=== PATIENT | female | born 1945 | race Caucasian/White ===

== ENCOUNTER 2017-03-20 16:32 | Inpatient (IN) ==
--- NOTE | 2017-03-20 17:00 | Emergency Department Report ---
Medical Clearance HPI - General Chief complaint: Medical Clearance Stated complaint: eval/poss generations Time Seen by Provider: 03/20/17 16:46 Source: patient, family (daughters) Mode of arrival: ambulatory Limitations: no limitations - History of Present Illness HPI Narrative: She presents to Er today for clearance with her daughters. She lives at home in her own apartment. She is a daily drinker and typically drinks beer or vodka. She did fall at home yesterday and was taken to [facility] where she had a head CT that was normal as well as an ETOH level of 210. Her daughter reports that they are wanting admission to [facility] as she has had some hallucinations. This morning she thought that she saw a dog on her couch and also reports seeing other animals at other times that are not there. complaint: medical clearance requested Onset (ago): day(s) Reason for Medical Clearance: intoxication, other (hallucinations) Place: home Traumatic Symptoms: denies traumatic injury Associated Symptoms: other (hallucination) Treatments Prior to Arrival: none Home medications: Home Medications Medication Instructions Recorded Confirmed Duloxetine [Cymbalta] 30 mg PO BID 03/20/17 03/20/17 Folic Acid [Folate] 1 mg PO DAILY 03/20/17 03/20/17 Furosemide [Lasix] 20 mg PO BID 03/20/17 03/20/17 Levothyroxine Sodium 150 mcg PO ACB 03/20/17 03/20/17 Meclizine [Antivert] 25 mg PO TID PRN 03/20/17 03/20/17 Meloxicam [Meloxicam] 7.5 mg PO DAILY 03/20/17 03/20/17 Metoprolol Tartrate [Lopressor] 25 mg PO BIDWM 03/20/17 03/20/17 Ondansetron HCl 4 mg PO Q6H PRN 03/20/17 03/20/17 Oxycodone HCl 5 mg PO HS PRN 03/20/17 03/20/17 Potassium Chloride 10 meq PO BID 03/20/17 03/20/17 Pyridoxine HCl (Vitamin B6) 25 mg PO DAILY 03/20/17 03/20/17 [Vitamin B-6] Thiamine [Vitamin B-1] 100 mg PO DAILY 03/20/17 03/20/17 Tramadol [Ultram] 50 mg PO DAILY PRN 03/20/17 03/20/17 Allergies/Adverse reactions: Allergies Allergy/AdvReac Type Severity Reaction Status Date / Time aspirin Allergy Severe CLOSES Verified 03/20/17 17:12 THROAT iron dextran complex Allergy Severe Unresponsiv Verified 03/20/17 17:12 e Review of Systems Constitutional: Denies: fever, chills, weakness ENT: Denies: ear pain, throat pain, congestion Cardiovascular: Denies: chest pain, palpitations, dyspnea on exertion, edema Respiratory: Denies: cough, dyspnea, wheezes Gastrointestinal: Denies: abdominal pain, nausea, vomiting, diarrhea Integumentary: Denies: rash Neurological: Denies: headache, weakness, numbness, paresthesias PFSH Patient Stated Medical History Other Cardiology Yes: hx of elevated troponin Bronchitis Yes Pneumonia Yes Other GI Yes: IBS Hx Incontinence Yes Depression Yes Clinic Medical History Hallucination (Acute Medical) Psychosis (Acute Medical) Alcohol withdrawal (Acute Medical) Alcohol use disorder (Acute Medical) Depressive disorder (Acute Medical) Major neurocognitive disorder (Acute Medical) - Social History Smoking status: Never smoker Substance use type: does not use Alcohol intake frequency: does not drink Physical Exam - Limitations Limitations: no limitations - General General appearance: alert, in no apparent distress - Normal Exams: Eyes:: Pupils are PERRLA w/ EOMI, No scleral icterus, irritation, or foreign bodies noted ENMT:: No facial trauma, nasal exudates, pharyngeal erythema, or exudates are noted Neck:: Full range of motion, without adenopathy, JVD, bruits or thyromegaly Chest/Respirations:: Clear all danielson, with good airflow, and symmetry bilaterally Cardiovascular:: Regular rate and rhythm, without murmur or gallop, Pulses 2+ all extremities, capillary refill, <2 seconds all extremities Abdomen:: Bowel sounds positive, soft, non-tender, non-distended, no hepatosplenomegaly, masses or bruits noted Lymphatic:: No lymphadenopathy, or lymphedema noted Musculoskeletal:: No tenderness, or deformity noted, good range of motion, all extremities Integumentary:: No rashes, hives Neurological:: Patient is alert, and oriented, cranial nerves, motor/sensory/ cerebellar, exams w/o gross deficits, to observation Psychiatric:: Patient exhibits, appropriate attention, emotion and affect - Skin Skin exam: Present: other (She is noted to have some ecchymosis around the right eye from her fall last night) Course Vital Signs Temperature 98.6 F 03/20/17 16:35 Pulse Rate 16 L 03/20/17 16:35 Respiratory Rate 16 03/20/17 16:35 Blood Pressure 156/83 H 03/20/17 16:35 Pulse Oximetry 97 03/20/17 16:35 Temperature 97.3 F 03/24/17 16:00 Pulse Rate 83 03/24/17 16:00 Respiratory Rate 18 03/24/17 16:00 Blood Pressure 95/65 03/24/17 16:00 Pulse Oximetry 97 03/24/17 16:00 Medical Clearance - MDM Narrative Medical decision making narrative: DD: ETOHism, hallucination, dementia, UTI, electrolyte imbalance - Lab Data Attestation: I reviewed the patient's lab results. Result diagrams: 03/20/17 17:13 03/23/17 04:17 Lab Results 03/20/17 03/20/17 03/20/17 Range/Units 17:13 17:13 17:13 WBC 5.7 (4.5-11.0) T/MM3 RBC 3.85 L (4.00-5.20) M/MM3 Hgb 12.8 (12-16) GM/DL Hct 37.7 (36-46) % MCV 97.9 (80-100) UM3 MCH 33.2 (26-34) UUG MCHC 34.0 (31-37) GM/DL RDW Std Deviation 59.8 H (36.9-50.2) FL Plt Count 130 (130-400) T/MM3 MPV 10.5 (9.4-12.4) UM3 Immature Gran % (Auto) 0.2 (0.0-0.5) % Neut % (Auto) 64.7 (33-66) % Lymph % (Auto) 27.7 (23-45) % [place] % (Auto) 7.0 (0-9.0) % Eos % (Auto) 0.0 (0-4) % Baso % (Auto) 0.4 (0-2) % Neut # (Auto) 3.7 (1.8-7.7) T/MM3 Lymph # (Auto) 1.6 (1-4.8) T/MM3 [place] # (Auto) 0.4 (0-0.8) T/MM3 Eos # (Auto) 0.0 (0-0.5) T/MM3 Baso # (Auto) 0.0 (0-0.2) T/MM3 Abs Immat Gran (auto) 0.01 (0.00-0.03) T/MM3 Turbidity < 20 (0-20) Sodium 136 (134-144) MEQ/L Potassium 3.8 (3.6-5) MEQ/L Chloride 101 (98-107) MEQ/L Carbon Dioxide 29 (22-30) MEQ/L Anion Gap 6 (5-15) MEQ/L BUN 11.0 (7-17) MG/DL Creatinine 0.8 (0.7-1.2) MG/DL GFR Calculation 70 BUN/Creatinine Ratio 14 (6-26) RATIO Glucose 107 (65-110) MG/DL Hemoglobin A1c 5.2 L (6.1-7.9) % Calculated Osmolality 261 (261-280) MOSM/KG Calcium 8.0 L (8.4-10.2) MG/DL Total Bilirubin 1.30 (0.20-1.30) MG/DL Icterus Index < 2 (0-7) GGT (3-36) U/L AST 191 H (14-36) U/L ALT 156 H (9-52) U/L Alkaline Phosphatase 278 H (38-126) U/L Troponin I < 0.012 (0-0.12) ng/ml Total Protein 6.2 L (6.3-8.2) G/DL Albumin 3.4 L (3.5-5.0) G/DL Globulin 2.8 (2.4-3.6) G/DL Albumin/Globulin Ratio 1.2 (1.1-2.2) RATIO Triglycerides 149 H (35-135) MG/DL Cholesterol 164 (132-199) MG/DL LDL Cholesterol, Calc 48.2 L (66-159) VLDL Cholesterol 29.8 H (0-28) MG/DL HDL Cholesterol 86 H (40-60) MG/DL Cholesterol/HDL Ratio 1.9 (0-4.0) RATIO Vitamin B12 (239-931) PG/ML Folate (2.76-20) NG/ML TSH 16.20 H (0.47-4.68) MIU/L Specimen Hemolysis < 15 (0-25) Ur Collection Type Urine Color (YELLOW) Urine Clarity Urine pH (5.0-8.0) Ur Specific [place] (1.015-1.025) Urine Protein (NEGATIVE) Urine Glucose (UA) (NEGATIVE) Urine Ketones (NEGATIVE) Urine Occult Blood (NEGATIVE) Urine Nitrate (NEGATIVE) Urine Bilirubin (NEGATIVE) Urine Urobilinogen (NORMAL) EU/DL Ur Leukocyte Esterase (NEGATIVE) Urine RBC (0-3) /HPF Urine WBC (0-5) /HPF Urine WBC Clumps Ur Squamous Epith Cells Amorphous Sediment Urine Bacteria (NEGATIVE) Urine Mucus Ur Culture Indicated? Salicylates < 1.0 L (2-20) MG/DL Urine Opiates Screen ng/mL Ur Oxycodone Screen ng/mL Urine Methadone Screen ng/mL Ur Propoxyphene Screen ng/mL Acetaminophen < 10 L (10-30) UG/ML Ur Barbiturates Screen ng/mL U Tricyclic Antidepress ng/mL Ur Phencyclidine Scrn ng/mL Ur Amphetamines Screen ng/mL U Methamphetamines Scrn ng/mL U Benzodiazepines Scrn ng/mL Urine Cocaine Screen ng/mL U Cannabinoids Screen ng/mL Alcohol, Quantitative <10 (<10) MG/DL 03/20/17 03/20/17 03/20/17 Range/Units 17:13 17:13 17:23 WBC (4.5-11.0) T/MM3 RBC (4.00-5.20) M/MM3 Hgb (12-16) GM/DL Hct (36-46) % MCV (80-100) UM3 MCH (26-34) UUG MCHC (31-37) GM/DL RDW Std Deviation (36.9-50.2) FL Plt Count (130-400) T/MM3 MPV (9.4-12.4) UM3 Immature Gran % (Auto) (0.0-0.5) % Neut % (Auto) (33-66) % Lymph % (Auto) (23-45) % [place] % (Auto) (0-9.0) % Eos % (Auto) (0-4) % Baso % (Auto) (0-2) % Neut # (Auto) (1.8-7.7) T/MM3 Lymph # (Auto) (1-4.8) T/MM3 [place] # (Auto) (0-0.8) T/MM3 Eos # (Auto) (0-0.5) T/MM3 Baso # (Auto) (0-0.2) T/MM3 Abs Immat Gran (auto) (0.00-0.03) T/MM3 Turbidity (0-20) Sodium (134-144) MEQ/L Potassium (3.6-5) MEQ/L Chloride (98-107) MEQ/L Carbon Dioxide (22-30) MEQ/L Anion Gap (5-15) MEQ/L BUN (7-17) MG/DL Creatinine (0.7-1.2) MG/DL GFR Calculation BUN/Creatinine Ratio (6-26) RATIO Glucose (65-110) MG/DL Hemoglobin A1c (6.1-7.9) % Calculated Osmolality (261-280) MOSM/KG Calcium (8.4-10.2) MG/DL Total Bilirubin (0.20-1.30) MG/DL Icterus Index (0-7) GGT 1352 H (3-36) U/L AST (14-36) U/L ALT (9-52) U/L Alkaline Phosphatase (38-126) U/L Troponin I (0-0.12) ng/ml Total Protein (6.3-8.2) G/DL Albumin (3.5-5.0) G/DL Globulin (2.4-3.6) G/DL Albumin/Globulin Ratio (1.1-2.2) RATIO Triglycerides (35-135) MG/DL Cholesterol (132-199) MG/DL LDL Cholesterol, Calc (66-159) VLDL Cholesterol (0-28) MG/DL HDL Cholesterol (40-60) MG/DL Cholesterol/HDL Ratio (0-4.0) RATIO Vitamin B12 354 (239-931) PG/ML Folate 18.0 (2.76-20) NG/ML TSH (0.47-4.68) MIU/L Specimen Hemolysis (0-25) Ur Collection Type Urine, clean catch Urine Color [place] (YELLOW) Urine Clarity Sl cloudy Urine pH 6.0 (5.0-8.0) Ur Specific [place] >=1.030 H (1.015-1.025) Urine Protein 2+ A (NEGATIVE) Urine Glucose (UA) Negative (NEGATIVE) Urine Ketones 1+ A (NEGATIVE) Urine Occult Blood Negative (NEGATIVE) Urine Nitrate Positive A (NEGATIVE) Urine Bilirubin 2+ A (NEGATIVE) Urine Urobilinogen 1.0 (NORMAL) EU/DL Ur Leukocyte Esterase Trace A (NEGATIVE) Urine RBC 5-10 H (0-3) /HPF Urine WBC 20-30 H (0-5) /HPF Urine WBC Clumps Few Ur Squamous Epith Cells >50 Amorphous Sediment Few Urine Bacteria 2+ H (NEGATIVE) Urine Mucus Present Ur Culture Indicated? Cult reflexed &setup Salicylates (2-20) MG/DL Urine Opiates Screen ng/mL Ur Oxycodone Screen ng/mL Urine Methadone Screen ng/mL Ur Propoxyphene Screen ng/mL Acetaminophen (10-30) UG/ML Ur Barbiturates Screen ng/mL U Tricyclic Antidepress ng/mL Ur Phencyclidine Scrn ng/mL Ur Amphetamines Screen ng/mL U Methamphetamines Scrn ng/mL U Benzodiazepines Scrn ng/mL Urine Cocaine Screen ng/mL U Cannabinoids Screen ng/mL Alcohol, Quantitative (<10) MG/DL 03/20/ Range/Units 19:07 WBC (4.5-11.0) T/MM3 RBC (4.00-5.20) M/MM3 Hgb (12-16) GM/DL Hct (36-46) % MCV (80-100) UM3 MCH (26-34) UUG MCHC (31-37) GM/DL RDW Std Deviation (36.9-50.2) FL Plt Count (130-400) T/MM3 MPV (9.4-12.4) UM3 Immature Gran % (Auto) (0.0-0.5) % Neut % (Auto) (33-66) % Lymph % (Auto) (23-45) % [place] % (Auto) (0-9.0) % Eos % (Auto) (0-4) % Baso % (Auto) (0-2) % Neut # (Auto) (1.8-7.7) T/MM3 Lymph # (Auto) (1-4.8) T/MM3 [place] # (Auto) (0-0.8) T/MM3 Eos # (Auto) (0-0.5) T/MM3 Baso # (Auto) (0-0.2) T/MM3 Abs Immat Gran (auto) (0.00-0.03) T/MM3 Turbidity (0-20) Sodium (134-144) MEQ/L Potassium (3.6-5) MEQ/L Chloride (98-107) MEQ/L Carbon Dioxide (22-30) MEQ/L Anion Gap (5-15) MEQ/L BUN (7-17) MG/DL Creatinine (0.7-1.2) MG/DL GFR Calculation BUN/Creatinine Ratio (6-26) RATIO Glucose (65-110) MG/DL Hemoglobin A1c (6.1-7.9) % Calculated Osmolality (261-280) MOSM/KG Calcium (8.4-10.2) MG/DL Total Bilirubin (0.20-1.30) MG/DL Icterus Index (0-7) GGT (3-36) U/L AST (14-36) U/L ALT (9-52) U/L Alkaline Phosphatase (38-126) U/L Troponin I (0-0.12) ng/ml Total Protein (6.3-8.2) G/DL Albumin (3.5-5.0) G/DL Globulin (2.4-3.6) G/DL Albumin/Globulin Ratio (1.1-2.2) RATIO Triglycerides (35-135) MG/DL Cholesterol (132-199) MG/DL LDL Cholesterol, Calc (66-159) VLDL Cholesterol (0-28) MG/DL HDL Cholesterol (40-60) MG/DL Cholesterol/HDL Ratio (0-4.0) RATIO Vitamin B12 (239-931) PG/ML Folate (2.76-20) NG/ML TSH (0.47-4.68) MIU/L Specimen Hemolysis (0-25) Ur Collection Type Urine Color (YELLOW) Urine Clarity Urine pH (5.0-8.0) Ur Specific [place] (1.015-1.025) Urine Protein (NEGATIVE) Urine Glucose (UA) (NEGATIVE) Urine Ketones (NEGATIVE) Urine Occult Blood (NEGATIVE) Urine Nitrate (NEGATIVE) Urine Bilirubin (NEGATIVE) Urine Urobilinogen (NORMAL) EU/DL Ur Leukocyte Esterase (NEGATIVE) Urine RBC (0-3) /HPF Urine WBC (0-5) /HPF Urine WBC Clumps Ur Squamous Epith Cells Amorphous Sediment Urine Bacteria (NEGATIVE) Urine Mucus Ur Culture Indicated? Salicylates (2-20) MG/DL Urine Opiates Screen Negative ng/mL Ur Oxycodone Screen Negative ng/mL Urine Methadone Screen Negative ng/mL Ur Propoxyphene Screen Negative ng/mL Acetaminophen (10-30) UG/ML Ur Barbiturates Screen Negative ng/mL U Tricyclic Antidepress Negative ng/mL Ur Phencyclidine Scrn Negative ng/mL Ur Amphetamines Screen Negative ng/mL U Methamphetamines Scrn Negative ng/mL U Benzodiazepines Scrn Negative ng/mL Urine Cocaine Screen Negative ng/mL U Cannabinoids Screen Negative ng/mL Alcohol, Quantitative (<10) MG/DL Disposition Clinical Impression: Hallucination Disposition: 63 To [facility] Condition: Stable Time of Disposition: 19:38 - Seen By: [facility]
[2017-03-20] MEDS ORDERED: LOPERAMIDE 1 mg/5 mL ORAL LIQUID PO ONE (20:15)
[2017-03-20] MEDS ORDERED: LOPERAMIDE 2 MG CAPSULE PO ONE (20:20)
[2017-03-20] MEDS ORDERED: HALOPERIDOL 5 MG/ML INJECTION IM PRN (20:54)
[2017-03-20] MEDS ORDERED: HALOPERIDOL 0.5 MG TABLET PO PRN (20:54)
[2017-03-20] MEDS ORDERED: LORazepam 1 MG TABLET PO ONE (20:54)
[2017-03-20] MEDS: DULOXETINE 30 MG CAPSULE PO SCH (22:12)
[2017-03-20] MEDS: FUROSEMIDE 20 MG TABLET PO SCH (22:12)
[2017-03-20] MEDS ORDERED: HYDROCODONE/APAP 5mg/325mg TABLET PO PRN (22:24)
[2017-03-20 23:55] VITALS: BMI 30.4
[2017-03-21] MEDS ORDERED: LEVOTHYROXINE 150 MCG TABLET PO SCH (06:30)
--- NOTE | 2017-03-21 08:16 | History & Physical Report ---
History of Present Illness Date: 03/21/17 Chief complaint: hallucinations HPI: Zoila is a pleasant 71-year-old female who was brought into the emergency room by her daughter. Last evening for acute evaluation of increased hallucinations, as she reported seeing her deseased as well as animals . She sustained several falls recently and reports that she has been dizzy intermittently. She was evaluated 2 days ago [facility] following a fall and head injury. Her CT scan of the head was normal, however. Alcohol level was found to be 210. She reports that she is a daily drinker generally drinking vodka or beer. Acute medical examination was completed in the emergency room. CBC was found to be essentially normal. Electrolytes are normal, LFTs are elevated with an AST of 191 and ALT of 156, alkaline phosphatase 278. TSH was also elevated at 16.2, patient is currently on levothyroxine 150 micrograms daily. Urinalysis did show 2+ protein, 1+ ketones, positive nitrates, 2+ bilirubin, trace leukocyte esterase, 5-10 RBCs, 20-30 WBCs with 2+ bacteria and presence of epithelial cells. Salicylate, acetaminophen and alcohol were all negative. Urine drug screen also negative. Vital signs were normal. Given acute hallucinations. Patient was accepted to the generations unit for further psychiatric evaluation and treatment. Zoila is seen this morning for initial medical examination in consultation. She is alert, oriented and pleasant. While eating breakfast. She is able to give an accurate history. She does report several weeks of intermittent dizziness which she attributes causing to her falls. She has had a recent upper respiratory congestion that has now improved. She does continue to smoke daily. She does report having chronic IBS with frequent diarrhea. Review of Systems All systems PM: 10-point ROS was reviewed, no additional remarkable complaints except - Gastrointestinal Gastrointestinal: Present: diarrhea (chronic) - Musculoskeletal Musculoskeletal: Present: back pain (chronic) - Psychiatric Psychiatric: Present: hallucinations [facility] Patient Stated Medical History Irritable bowel syndrome Hypothyroidism History of iron deficiency anemia History of diverticulosis Osteoarthritis, osteoporosis Depression and anxiety History of substance abuse-alcohol Reported history of fibromyalgia Surgical History: Thyroidectomy-. DNC [id number]. Breast reduction- 1989. Cholecystectomy-1995. Hysterectomy-1988. Appendectomy 1996. Left total knee replacement-2007 (Dr. Hernandez). Left shoulder surgery-[place]. Multiple lumbar epidural injections for chronic back pain Family History: Father at age 65, "he froze to " Mother of a brain tumor at age 76 - Social History Smoking status: Current every day smoker Substance use type: does not use Alcohol intake: current Alcohol intake frequency: 3 or more drinks per day Housing: house (independent) Current occupational status: retired Social history: Patient resides independently in [place], [place]. 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 Medications Home Medications Medication Instructions Recorded Confirmed Type Duloxetine [Cymbalta] 30 mg PO BID 03/20/17 03/20/17 History Folic Acid [Folate] 1 mg PO DAILY 03/20/17 03/20/17 History Furosemide [Lasix] 20 mg PO BID 03/20/17 03/20/17 History Levothyroxine Sodium 150 mcg PO ACB 03/20/17 03/20/17 History Meclizine [Antivert] 25 mg PO TID PRN 03/20/17 03/20/17 History Meloxicam [Meloxicam] 7.5 mg PO DAILY 03/20/17 03/20/17 History Metoprolol Tartrate [Lopressor] 25 mg PO BIDWM 03/20/17 03/20/17 History Ondansetron HCl 4 mg PO Q6H PRN 03/20/17 03/20/17 History Oxycodone HCl 5 mg PO HS PRN 03/20/17 03/20/17 History Potassium Chloride 10 meq PO BID 03/20/17 03/20/17 History Pyridoxine HCl (Vitamin B6) 25 mg PO DAILY 03/20/17 03/20/17 History [Vitamin B-6] Thiamine [Vitamin B-1] 100 mg PO DAILY 03/20/17 03/20/17 History Tramadol [Ultram] 50 mg PO DAILY PRN 03/20/17 03/20/17 History Allergies Allergy/AdvReac Type Severity Reaction Status Date / Time aspirin Allergy Severe CLOSES Verified 03/20/17 17:12 THROAT iron dextran complex Allergy Severe Unresponsiv Verified 03/20/17 17:12 e Exam Vital Signs: Temperature 98 F 03/21/17 08:04 Pulse Rate 85 03/21/17 08:04 Respiratory Rate 20 03/21/17 08:04 Blood Pressure 148/88 H 03/21/17 08:04 Pulse Oximetry 95 03/21/17 08:04 Height/Weight/BMI: Height 1.5 m Weight 68.4 kg Body Mass Index 30.4 - Constitutional Present: no acute distress, well nourished, well developed - Routine HEENT Exam Eye: Present: EOMI, PERRL ENT: Present: mucous membranes moist, dentition normal Comments: Ecchymosis to forehead from recent fall - Routine Neck Exam Present: full ROM - Routine Respiratory Exam Present: CTA bilaterally. Absent: wheezes - Routine Cardiovascular Exam Present: RRR, S1, S2. Absent: murmur - Routine Abdominal Exam Present: soft, normoactive bowel sounds, non distended. Absent: tenderness - Routine Extremities Exam Present: edema (LLE- chronic edema), full ROM, normal capillary refill - Routine Back/Spine/Pelvis Exam Back/Spine: Present: full ROM - Routine Skin Exam Present: intact, dry, warm - Routine Neurological Exam Present: alert, oriented X3, CN II-XII intact, moving all extremities - Routine Psychiatric Exam Present: normal affect, cooperative Results - Labs CBC & Chem 7: 03/20/17 17:13 03/20/17 17:13 Assessment and Plan (1) Hallucination Current visit: Yes Status: Acute Assessment and Plan: Impression Acute Hallucinations Acute transaminitis UTI- POA Daily Alcohol Use Recent falls (with face trauma) Hypothyroidism Depression/Anxiety Chronic back pain Plan Agree with admission to [facility] unit under the care of Dr Dunn Monitor patient for Alcohol withdrawal symptoms. Place precautionary seizure precautions. Patient may require Serax if she has acute withdrawal. Will leave this up to Dr. Dunn. Will increase patient's home dose of levothyroxine to 175 micrograms daily. Obtain free T4, GGT, vitamin B12, folate for laboratory completeness. Will continue with treatment of urinary tract infection with Keflex 3 times a day. Will wait for urine culture. May be able to discontinue treatment. Depending on culture results. Recheck CMP tomorrow to follow transaminitis Hospitalist service will continue to follow patient and medically manage during her stay on the generations unit. Hospital Course Summary Disclaimer: The visit summary below is not to be considered part of the above Progress Note. Hospital Course: 03/21/17 Impression Acute Hallucinations Acute transaminitis UTI- POA Daily Alcohol Use Recent falls (with face trauma) Hypothyroidism Depression/Anxiety Chronic back pain Plan Agree with admission to [facility] unit under the care of Dr Dunn Monitor patient for Alcohol withdrawal symptoms. Place precautionary seizure precautions. Patient may require Serax if she has acute withdrawal. Will leave this up to Dr. Dunn. Will increase patient's home dose of levothyroxine to 175 micrograms daily. Obtain free T4, GGT, vitamin B12, folate for laboratory completeness. Will continue with treatment of urinary tract infection with Keflex 3 times a day. Will wait for urine culture. May be able to discontinue treatment. Depending on culture results. Recheck CMP tomorrow to follow transaminitis Hospitalist service will continue to follow patient and medically manage during her stay on the [facility] unit.
[2017-03-21] MEDS ORDERED: LORazepam 1 MG TABLET PO ONE (08:17)
[2017-03-21] MEDS: DULOXETINE 30 MG CAPSULE PO SCH ×2 (08:26→20:29)
[2017-03-21] MEDS: FOLIC ACID 1 MG TABLET PO SCH (08:26)
[2017-03-21] MEDS: PYRIDOXINE 100mg TABLET PO SCH (08:26)
[2017-03-21] MEDS: FUROSEMIDE 20 MG TABLET PO SCH ×2 (08:26→13:02)
--- NOTE | 2017-03-21 08:31 | XRay Report ---
INDICATION: R/O Malignancy PROCEDURE: CHEST 2-VIEWS UPRIGHT (PA & LAT) Encounter: Initial COMPARISON: None FINDINGS: The lungs are clear without evidence of focal abnormal airspace opacity. There is no pleural effusion or pneumothorax. The heart size, mediastinal contours and pulmonary vascularity are within normal limits. Bilateral shoulder replacements. IMPRESSION: No acute cardiopulmonary disease. .
[2017-03-21] MEDS: MELOXICAM 7.5 MG TABLET PO SCH (08:49)
[2017-03-21] MEDS: CephALEXin 250 MG/5 ML ORAL LIQUID PO SCH ×2 (11:57→17:03)
--- NOTE | 2017-03-21 18:44 | 24 Hour Neuropsychiatic Eval ---
Date of Admission: 03/20/17 20:17 Chief complaint: "I drink too much" History of Present Illness: Patient is a retired, 71-year-old female who was brought to the [facility] ED by her daughter on 03/20/17 for self-care failure and VH in the context of alcoholism and admitted to [facility]. She has complained of dizziness recently and had multiple falls, in various stages of healing. She was seen at [facility] [address] was negative. AST, ALT, and GGT are quite elevated and daughter reported patient has been drinking a gallon of vodka daily. Last drink reportedly 03/18. On interview, patient is a unreliable historian but pleasant. She reports feeling depressed and admits that her drinking has been very problematic for years. She was able to remain sober for 9 months a couple of years ago after outpatient rehab. She denies feeling suicidal right now but reports she becomes suicidal when drinking. Patient's house is reportedly in a terrible state. She denies HI. She denies a history of withdrawal seizures but does become tremulous upon EtOH cessation. She denies prior suicide attempts or psychiatric hospitalizations. She thinks she has taken meds for anxiety in the past but cannot name them. She smokes cigarettes but denies other substance use. Depression: Increased Anxiety, Loss of Interest in Activities, Isolating Oneself From Friends and Family, Difficulty Sleeping, Feelings of Worthlessness , Feelings of Guilt, Recurrent Thoughts of or Suicide, Unhappiness Dementia: Memory Impairment Anxiety: Sense of Impending Doom (episodes last up to 30 minutes) [facility] Patient Stated Medical History Other Cardiology Yes: hx of elevated troponin Bronchitis Yes Pneumonia Yes Other GI Yes: IBS Hx Incontinence Yes Depression Yes Panic Disorder No Clinic Medical History Hallucination (Acute Medical) Surgical History: Thyroidectomy-. DNC [id number]. Breast reduction- 1989. Cholecystectomy-1995. Hysterectomy-1988. Appendectomy 1996. Left total knee replacement-2007 (Dr. Hernandez). Left shoulder surgery-[place]. Multiple lumbar epidural injections for chronic back pain Family History: Brother: alcoholism - Social History Smoking status: Current every day smoker Substance use type: does not use Alcohol intake: current Alcohol intake frequency: 3 or more drinks per day (gallon of vodka daily) Last drink: days (ago) (11/19) Housing: apartment Household members: none service: No Current occupational status: retired Social history: Graduated HS, did clerical work. 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 Strengths: pleasant, has insight into alcoholism, has supportive family Review of Systems All systems: reviewed and no additional remarkable complaints except as stated - Constitutional Constitutional: Present: fatigue - EENMT Balance: Present: other (dizziness leading to falls) - Neurological Neurological: Present: dizziness, frequent falls - Psychiatric Psychiatric: Present: abnormal sleep pattern, anxiety, behavioral changes, depression, suicidal ideation, visual hallucinations Mental Status Exam Vitals: Last Vital Signs Temp 98.1 F 03/21/17 16:00 Pulse 69 03/21/17 16:00 Resp 18 03/21/17 16:00 BP 103/69 03/21/17 16:00 Pulse Ox 95 03/21/17 16:00 Height: 1.5 m Weight: 68.4 kg - Mental Status Exam Muscle Strength/Tone: Normal Dressing: Casual Grooming: Good Attitude: Cooperative Motor Activity: Retardation Eye Contact: Good Speech: Normal Volume: Normal Rhythm: Appropriate Rhythm Orientation: Disoriented to time, Oriented to person, Oriented to place Mood: Depressed Affect: Sad Rate of Thoughts: Appropriate Rate Thought Organization: Organized Associations: Intact Abstract Reasoning: Poor abstract reasoning Thought Content: Ruminations, Helplessness, Worthlessness, Somatic Concerns Perception/Psychotic: Other (Recent psychosis) Current Hallucinations: Visual Language: Other (Some word-finding difficulties) Fund of Knowledge: Other (Decreased) Memory: Poor-recent Suicidal Ideation: Intermittent Homicidal Ideation: Denies Insight: Limited Judgement: Poor Impulse Control: Good - Laboratory Result Diagrams: 03/20/17 17:13 03/22/17 04:32 Assessment and Plan (1) Psychosis Current visit: Yes Status: Acute (2) Alcohol withdrawal Current visit: Yes Status: Acute (3) Alcohol use disorder Current visit: Yes Status: Acute (4) Depressive disorder Current visit: Yes Status: Acute (5) Major neurocognitive disorder Current visit: Yes Status: Acute Agree with admission to [facility]; maintain safety and elopement precautions. Evaluate and stabilize. Review/order the following: CBC, CMP, TSH, UA, Vitamin B12 and folate, GGT, head CT prior to admission, CXR. Consult hospitalist for optimization of medical comorbidities. Schedule Ativan 1mg PO BID upon admission to minimize withdrawal symptoms; monitor VS for signs of withdrawal. PRN available for seizure activity. Plan to taper and discontinue. Monitor mood, behavior and response to treatment.
[2017-03-22] MEDS: CephALEXin 250 MG/5 ML ORAL LIQUID PO SCH ×2 (00:06→08:14)
[2017-03-22] MEDS: LEVOTHYROXINE 175 MCG TABLET PO SCH (05:30)
[2017-03-22] MEDS: MELOXICAM 7.5 MG TABLET PO SCH (08:14)
[2017-03-22] MEDS: PYRIDOXINE 100mg TABLET PO SCH (08:14)
[2017-03-22] MEDS: DULOXETINE 30 MG CAPSULE PO SCH ×2 (08:14→20:00)
[2017-03-22] MEDS: FOLIC ACID 1 MG TABLET PO SCH (08:15)
[2017-03-22] MEDS: FUROSEMIDE 20 MG TABLET PO SCH ×2 (08:23→16:58)
--- NOTE | 2017-03-22 09:15 | Progress Note ---
- Date 03/22/17 Subjective: Zoila is seen thia morning in follow up. Labs reviewed sodium and potassium are decreased this morning. Zoila states she is not feeling good after eating too many sweet items at breakfast. Denies having pain or feeling shortness of breath. No current dizziness however, has had some intermittent episodes. Objective Vital signs: Temperature 98.2 F 03/21/17 19:19 Pulse Rate 75 03/21/17 20:47 Respiratory Rate 18 03/21/17 20:47 Blood Pressure 108/77 03/21/17 19:19 Pulse Oximetry 97 03/21/17 20:47 Height/Weight/BMI: Height 1.5 m Weight 68.4 kg Body Mass Index 30.4 - Constitutional Present: no acute distress, well nourished, well developed - Routine HEENT Exam Eye: Present: EOMI ENT: Present: mucous membranes moist, dentition normal - Routine Respiratory Exam Present: CTA bilaterally. Absent: wheezes - Routine Cardiovascular Exam Present: RRR, S1, S2. Absent: murmur - Routine Abdominal Exam Present: soft, normoactive bowel sounds, non distended. Absent: tenderness - Routine Extremities Exam Present: normal capillary refill - Routine Back/Spine/Pelvis Exam Back/Spine: Present: full ROM - Routine Skin Exam Present: intact, dry, warm - Routine Neurological Exam Present: alert, oriented X3, CN II-XII intact, moving all extremities - Routine Lymphatic Exam Lymphatic: Absent: adenopathy - Routine Psychiatric Exam Present: normal affect, cooperative Results - Labs CBC & Chem 7: 03/20/17 17:13 03/22/17 04:32 Assessment and Plan (1) Hallucination Current visit: Yes Status: Acute Assessment and Plan: Impression Acute Hallucinations Acute transaminitis UTI- POA Daily Alcohol Use Recent falls (with face trauma) Hypothyroidism Depression/Anxiety Chronic back pain Plan Potassium decreased to 3.0. Will give 40 MEQ this morning and then increase to TID with meals. Asked nursing staff to check orthostatic vitals BID given reported intermittent dizziness. LFTs are trending down, Continue to monitor. Recheck CMP tomorrow Hospital Course Summary Disclaimer: The visit summary below is not to be considered part of the above Progress Note. Hospital Course: 03/21/17 Impression Acute Hallucinations Acute transaminitis UTI- POA Daily Alcohol Use Recent falls (with face trauma) Hypothyroidism Depression/Anxiety Chronic back pain Plan Agree with admission to [facility] under the care of Dr Dunn Monitor patient for Alcohol withdrawal symptoms. Place precautionary seizure precautions. Patient may require Serax if she has acute withdrawal. Will leave this up to Dr. Dunn. Will increase patient's home dose of levothyroxine to 175 micrograms daily. Obtain free T4, GGT, vitamin B12, folate for laboratory completeness. Will continue with treatment of urinary tract infection with Keflex 3 times a day. Will wait for urine culture. May be able to discontinue treatment. Depending on culture results. Recheck CMP tomorrow to follow transaminitis Hospitalist service will continue to follow patient and medically manage during her stay on the [facility].
[2017-03-22] MEDS: LOPERAMIDE 2 MG CAPSULE PO PRN ×3 (10:29→19:58)
--- NOTE | 2017-03-22 20:48 | Neuropsych Progress Note ---
Barbara Subjective Date: 03/22/17 - Sujective/Severity of Illness Medications: Duloxetine HCl (Cymbalta) 30 mg PO BID [facility] Last Admin: 03/22/17 20:00 Dose: 30 mg Folic Acid (Folate) 1 mg PO DAILY [facility] Last Admin: 03/22/17 08:15 Dose: 1 mg Furosemide (Lasix) 20 mg PO 09,14 [facility] Last Admin: 03/22/17 16:58 Dose: 20 mg Haloperidol (Haldol) 0.5 mg PO Q6H PRN PRN Reason: Extreme agitation Haloperidol Lactate (Haldol) 0.5 mg IM Q6H PRN PRN Reason: Extreme agitation Levothyroxine Sodium (Synthroid) 175 mcg PO ACB [facility] Last Admin: 03/22/17 05:30 Dose: 175 mcg Loperamide HCl (Imodium) 2 mg PO PRN PRN PRN Reason: Protocol Last Admin: 03/22/17 19:58 Dose: 2 mg Lorazepam (Ativan Inj) 0.5 mg IM Q6H PRN PRN Reason: Extreme agitation Lorazepam (Ativan) 0.5 mg PO Q6H PRN PRN Reason: Extreme agitation Lorazepam (Ativan Inj) 2 mg IM ONCE PRN PRN Reason: Seizures Meloxicam (Mobic) 7.5 mg PO DAILY [facility] Last Admin: 03/22/17 08:14 Dose: 7.5 mg Potassium Chloride (Micro-K) 20 meq PO TIDWM [facility] Last Admin: 03/22/17 16:58 Dose: 20 meq Pyridoxine HCl (Vitamin B-6) 25 mg PO DAILY [facility] Last Admin: 03/22/17 08:14 Dose: 25 mg Thiamine HCl (Vitamin B-1) 100 mg PO DAILY [facility] Last Admin: 03/22/17 08:14 Dose: 100 mg Subjective: Pt seen and chart examined. Nursing reports pt is doing well. No behaviors noted. On face to face the pt states she is feeling better. Mood improved. Sleeping better and eating well. Denies S/I. No WD symptoms. Tolerating meds Start Time: 20:15 Stop Time: 20:30 Mental Status Exam Vitals: Last Vital Signs Temp 96.9 F 03/22/17 20:09 Pulse 65 03/22/17 16:00 Resp 16 03/22/17 20:09 BP 98/63 03/22/17 20:09 Pulse Ox 98 03/22/17 16:00 Height: 1.5 m Weight: 68.4 kg - Mental Status Exam Muscle Strength/Tone: Normal Dressing: Casual Grooming: Good Attitude: Cooperative Motor Activity: Retardation Eye Contact: Good Speech: Normal Volume: Normal Rhythm: Appropriate Rhythm Orientation: Disoriented to time, Oriented to person, Oriented to place Mood: Depressed Rate of Thoughts: Appropriate Rate Thought Organization: Organized Associations: Intact Abstract Reasoning: Poor abstract reasoning Thought Content: Ruminations, Helplessness, Worthlessness, Somatic Concerns Perception/Psychotic: Other (Recent psychosis) Current Hallucinations: Visual Language: Other (Some word-finding difficulties) Fund of Knowledge: Other (Decreased) Memory: Poor-recent Suicidal Ideation: Intermittent Homicidal Ideation: Denies Insight: Limited Judgement: Poor Impulse Control: Good - Laboratory Result Diagrams: 03/20/17 17:13 03/22/17 04:32 Laboratory Results - last 24 hr 03/22/17 04:32 Turbidity < 20 Sodium 132 L Potassium 3.0 L D Chloride 97 L Carbon Dioxide 32 H Anion Gap 3 L BUN 9.0 Creatinine 0.6 L D GFR Calculation 98 BUN/Creatinine Ratio 15 Glucose 81 Calculated Osmolality 253 L Calcium 7.5 L Total Bilirubin 0.70 Icterus Index < 2 AST 92 H D ALT 100 H Alkaline Phosphatase 175 H D Total Protein 5.1 L Albumin 2.5 L Globulin 2.6 Albumin/Globulin Ratio 1.0 L Specimen Hemolysis < 15 Assessment and Plan (1) Psychosis Current visit: Yes Status: Acute (2) Alcohol withdrawal Current visit: Yes Status: Acute (3) Alcohol use disorder Current visit: Yes Status: Acute (4) Depressive disorder Current visit: Yes Status: Acute (5) Major neurocognitive disorder Current visit: Yes Status: Acute Hospital Course Summary Disclaimer: The visit summary below is not to be considered part of the above Progress Note. Hospital Course: 03/21/17 Impression Acute Hallucinations Acute transaminitis UTI- POA Daily Alcohol Use Recent falls (with face trauma) Hypothyroidism Depression/Anxiety Chronic back pain Plan Agree with admission to [facility] under the care of Dr Dunn Monitor patient for Alcohol withdrawal symptoms. Place precautionary seizure precautions. Patient may require Serax if she has acute withdrawal. Will leave this up to Dr. Dunn. Will increase patient's home dose of levothyroxine to 175 micrograms daily. Obtain free T4, GGT, vitamin B12, folate for laboratory completeness. Will continue with treatment of urinary tract infection with Keflex 3 times a day. Will wait for urine culture. May be able to discontinue treatment. Depending on culture results. Recheck CMP tomorrow to follow transaminitis Hospitalist service will continue to follow patient and medically manage during her stay on the [facility]. 03/22/17 20:47 Doing better. No WD. Continue current care
[2017-03-22] MEDS: LORazepam 0.5 MG TABLET PO PRN (21:06)
[2017-03-23] MEDS: LEVOTHYROXINE 175 MCG TABLET PO SCH (06:31)
[2017-03-23] MEDS: FOLIC ACID 1 MG TABLET PO SCH (08:34)
[2017-03-23] MEDS: MELOXICAM 7.5 MG TABLET PO SCH (08:35)
[2017-03-23] MEDS: FUROSEMIDE 20 MG TABLET PO SCH ×2 (08:35→15:32)
[2017-03-23] MEDS: PYRIDOXINE 100mg TABLET PO SCH (08:35)
[2017-03-23] MEDS: DULOXETINE 30 MG CAPSULE PO SCH ×2 (08:44→19:25)
[2017-03-23] MEDS: LOPERAMIDE 2 MG CAPSULE PO PRN ×2 (09:59→12:22)
[2017-03-23] MEDS ORDERED: MAG-AL + SIM ORAL LIQUID 30ml PO PRN (10:14)
--- NOTE | 2017-03-23 11:46 | Neuropsych Progress Note ---
[facility] Subjective Date: 03/23/17 - Sujective/Severity of Illness Medications: Al Hydroxide/Mg Hydroxide (Maalox Plus) 20 - 30 ml PO Q3H PRN PRN Reason: Indigestion Last Admin: 03/23/17 10:19 Dose: 30 ml Duloxetine HCl (Cymbalta) 30 mg PO BID [facility] Last Admin: 03/23/17 08:44 Dose: 30 mg Folic Acid (Folate) 1 mg PO DAILY [facility] Last Admin: 03/23/17 08:34 Dose: 1 mg Furosemide (Lasix) 20 mg PO 09,14 [facility] Last Admin: 03/23/17 08:35 Dose: 20 mg Haloperidol (Haldol) 0.5 mg PO Q6H PRN PRN Reason: Extreme agitation Haloperidol Lactate (Haldol) 0.5 mg IM Q6H PRN PRN Reason: Extreme agitation Levothyroxine Sodium (Synthroid) 175 mcg PO ACB [facility] Last Admin: 03/23/17 06:31 Dose: 175 mcg Loperamide HCl (Imodium) 2 mg PO PRN PRN PRN Reason: Protocol Last Admin: 03/23/17 09:59 Dose: 2 mg Lorazepam (Ativan Inj) 0.5 mg IM Q6H PRN PRN Reason: Extreme agitation Lorazepam (Ativan) 0.5 mg PO Q6H PRN PRN Reason: Extreme agitation Last Admin: 03/22/17 21:06 Dose: 0.5 mg Lorazepam (Ativan Inj) 2 mg IM ONCE PRN PRN Reason: Seizures Meloxicam (Mobic) 7.5 mg PO DAILY [facility] Last Admin: 03/23/17 08:35 Dose: 7.5 mg Potassium Chloride (Micro-K) 20 meq PO TIDWM [facility] Last Admin: 03/23/17 08:34 Dose: 20 meq Pyridoxine HCl (Vitamin B-6) 25 mg PO DAILY [facility] Last Admin: 03/23/17 08:35 Dose: 25 mg Thiamine HCl (Vitamin B-1) 100 mg PO DAILY [facility] Last Admin: 03/23/17 08:36 Dose: 100 mg Subjective: Pt seen and chart examined. Nursing reports pt is doing well. No behaviors noted. On face to face the pt states she continues to improve. Sleeping well and has a good appetite. Mood improved. Denies S/I. Denies WD. Tolerating meds Start Time: 11:30 Stop Time: 11:45 Mental Status Exam Vitals: Last Vital Signs Temp 97.2 F 03/23/17 08:00 Pulse 87 03/23/17 08:00 Resp 16 03/23/17 08:00 BP 123/69 03/23/17 08:00 Pulse Ox 94 03/23/17 08:00 Height: 1.5 m Weight: 68.4 kg - Mental Status Exam Muscle Strength/Tone: Normal Dressing: Casual Grooming: Good Attitude: Cooperative Motor Activity: Retardation Eye Contact: Good Speech: Normal Volume: Normal Rhythm: Appropriate Rhythm Orientation: Disoriented to time, Oriented to person, Oriented to place Mood: Depressed Rate of Thoughts: Appropriate Rate Thought Organization: Organized Associations: Intact Abstract Reasoning: Poor abstract reasoning Thought Content: Ruminations, Helplessness, Worthlessness, Somatic Concerns Perception/Psychotic: Other (Recent psychosis) Current Hallucinations: Visual Language: Other (Some word-finding difficulties) Fund of Knowledge: Other (Decreased) Memory: Poor-recent Suicidal Ideation: Intermittent Homicidal Ideation: Denies Insight: Limited Judgement: Poor Impulse Control: Good - Laboratory Result Diagrams: 03/20/17 17:13 03/23/17 04:17 Laboratory Results - last 24 hr 03/23/17 04:17 Turbidity < 20 Sodium 134 Potassium 3.6 D Chloride 98 Carbon Dioxide 32 H Anion Gap 4 L BUN 10.0 Creatinine 0.6 L GFR Calculation 98 BUN/Creatinine Ratio 17 Glucose 76 Calculated Osmolality 256 L Calcium 7.6 L Total Bilirubin 0.50 Icterus Index < 2 AST 94 H ALT 89 H Alkaline Phosphatase 164 H Total Protein 5.1 L Albumin 2.4 L Globulin 2.7 Albumin/Globulin Ratio 0.9 L Specimen Hemolysis < 15 Assessment and Plan (1) Psychosis Current visit: Yes Status: Acute (2) Alcohol withdrawal Current visit: Yes Status: Acute (3) Alcohol use disorder Current visit: Yes Status: Acute (4) Depressive disorder Current visit: Yes Status: Acute (5) Major neurocognitive disorder Current visit: Yes Status: Acute Hospital Course Summary Disclaimer: The visit summary below is not to be considered part of the above Progress Note. Hospital Course: 03/21/17 Impression Acute Hallucinations Acute transaminitis UTI- POA Daily Alcohol Use Recent falls (with face trauma) Hypothyroidism Depression/Anxiety Chronic back pain Plan Agree with admission to [facility] under the care of Dr Dunn Monitor patient for Alcohol withdrawal symptoms. Place precautionary seizure precautions. Patient may require Serax if she has acute withdrawal. Will leave this up to Dr. Dunn. Will increase patient's home dose of levothyroxine to 175 micrograms daily. Obtain free T4, GGT, vitamin B12, folate for laboratory completeness. Will continue with treatment of urinary tract infection with Keflex 3 times a day. Will wait for urine culture. May be able to discontinue treatment. Depending on culture results. Recheck CMP tomorrow to follow transaminitis Hospitalist service will continue to follow patient and medically manage during her stay on the [facility]. 03/22/17 20:47 Doing better. No WD. Continue current care 03/23/17 11:46 Continues to improve. Will order Kaley
[2017-03-23] MEDS: LORazepam 0.5 MG TABLET PO PRN (19:31)
[2017-03-24] MEDS: DULOXETINE 30 MG CAPSULE PO SCH ×3 (02:43→20:46)
[2017-03-24] MEDS: LEVOTHYROXINE 175 MCG TABLET PO SCH (05:32)
[2017-03-24] MEDS: MELOXICAM 7.5 MG TABLET PO SCH (08:00)
[2017-03-24] MEDS: PYRIDOXINE 100mg TABLET PO SCH (08:01)
[2017-03-24] MEDS: FUROSEMIDE 20 MG TABLET PO SCH ×2 (08:02→14:24)
[2017-03-24] MEDS: FOLIC ACID 1 MG TABLET PO SCH (08:02)
--- NOTE | 2017-03-24 08:17 | Progress Note ---
Progress Note: Chart reviewed. Order for CMP to be done 03/26 to continue to trend LFT's.
[2017-03-24] MEDS: LOPERAMIDE 2 MG CAPSULE PO PRN ×2 (09:05→18:51)
--- NOTE | 2017-03-24 10:21 | Neuropsych Progress Note ---
[facility] Subjective Date: 03/24/17 - Sujective/Severity of Illness Medications: Al Hydroxide/Mg Hydroxide (Maalox Plus) 20 - 30 ml PO Q3H PRN PRN Reason: Indigestion Last Admin: 03/23/17 10:19 Dose: 30 ml Duloxetine HCl (Cymbalta) 30 mg PO BID [facility] Last Admin: 03/24/17 08:02 Dose: 30 mg Folic Acid (Folate) 1 mg PO DAILY [facility] Last Admin: 03/24/17 08:02 Dose: 1 mg Furosemide (Lasix) 20 mg PO 09,14 [facility] Last Admin: 03/24/17 08:02 Dose: 20 mg Haloperidol (Haldol) 0.5 mg PO Q6H PRN PRN Reason: Extreme agitation Haloperidol Lactate (Haldol) 0.5 mg IM Q6H PRN PRN Reason: Extreme agitation Levothyroxine Sodium (Synthroid) 175 mcg PO ACB [facility] Last Admin: 03/24/17 05:32 Dose: 175 mcg Loperamide HCl (Imodium) 2 mg PO PRN PRN PRN Reason: Protocol Last Admin: 03/24/17 09:05 Dose: 2 mg Lorazepam (Ativan Inj) 0.5 mg IM Q6H PRN PRN Reason: Extreme agitation Lorazepam (Ativan) 0.5 mg PO Q6H PRN PRN Reason: Extreme agitation Last Admin: 03/23/17 19:31 Dose: 0.5 mg Lorazepam (Ativan Inj) 2 mg IM ONCE PRN PRN Reason: Seizures Meloxicam (Mobic) 7.5 mg PO DAILY [facility] Last Admin: 03/24/17 08:00 Dose: 7.5 mg Potassium Chloride (Micro-K) 20 meq PO TIDWM [facility] Last Admin: 03/24/17 08:00 Dose: 20 meq Pyridoxine HCl (Vitamin B-6) 25 mg PO DAILY [facility] Last Admin: 03/24/17 08:01 Dose: 25 mg Thiamine HCl (Vitamin B-1) 100 mg PO DAILY [facility] Last Admin: 03/24/17 08:00 Dose: 100 mg Subjective: Pt seen and chart examined. Nursing reports pt is doing well. No behaviors noted. On face to face the pt states she continues to improve. Sleeping and eating well. Mood stable. Denies S/I or WD symptoms. Tolerating meds Start Time: 09:30 Stop Time: 09:45 Mental Status Exam Vitals: Last Vital Signs Temp 97.3 F 03/24/17 08:00 Pulse 59 L 03/24/17 08:00 Resp 18 03/24/17 08:00 BP 113/73 03/24/17 08:00 Pulse Ox 97 03/24/17 08:00 Height: 1.5 m Weight: 68.4 kg - Mental Status Exam Muscle Strength/Tone: Normal Dressing: Casual Grooming: Good Attitude: Cooperative Motor Activity: Retardation Eye Contact: Good Speech: Normal Volume: Normal Rhythm: Appropriate Rhythm Orientation: Oriented X4 Mood: Euthymic Rate of Thoughts: Appropriate Rate Thought Organization: Organized Associations: Intact Abstract Reasoning: Poor abstract reasoning Thought Content: Normal Perception/Psychotic: Perception Normal Language: Naming Intact Fund of Knowledge: Appropriate Memory: Poor-recent Suicidal Ideation: None Homicidal Ideation: Denies Insight: Limited Judgement: Fair Impulse Control: Good - Laboratory Result Diagrams: 03/20/17 17:13 03/23/17 04:17 Assessment and Plan (1) Psychosis Current visit: Yes Status: Acute (2) Alcohol withdrawal Current visit: Yes Status: Acute (3) Alcohol use disorder Current visit: Yes Status: Acute (4) Depressive disorder Current visit: Yes Status: Acute (5) Major neurocognitive disorder Current visit: Yes Status: Acute Hospital Course Summary Disclaimer: The visit summary below is not to be considered part of the above Progress Note. Hospital Course: 03/21/17 Impression Acute Hallucinations Acute transaminitis UTI- POA Daily Alcohol Use Recent falls (with face trauma) Hypothyroidism Depression/Anxiety Chronic back pain Plan Agree with admission to [facility] under the care of Dr Dunn Monitor patient for Alcohol withdrawal symptoms. Place precautionary seizure precautions. Patient may require Serax if she has acute withdrawal. Will leave this up to Dr. Dunn. Will increase patient's home dose of levothyroxine to 175 micrograms daily. Obtain free T4, GGT, vitamin B12, folate for laboratory completeness. Will continue with treatment of urinary tract infection with Keflex 3 times a day. Will wait for urine culture. May be able to discontinue treatment. Depending on culture results. Recheck CMP tomorrow to follow transaminitis Hospitalist service will continue to follow patient and medically manage during her stay on the [facility]. 03/22/17 20:47 Doing better. No WD. Continue current care 03/23/17 11:46 Continues to improve. Will order DIOGENES and RIPPA 03/24/17 10:20 Continue current care
[2017-03-24] MEDS: LORazepam 0.5 MG TABLET PO PRN (20:53)
[2017-03-25] MEDS: DULOXETINE 30 MG CAPSULE PO SCH ×3 (03:56→19:17)
[2017-03-25] MEDS: LEVOTHYROXINE 175 MCG TABLET PO SCH (06:35)
[2017-03-25] MEDS: FOLIC ACID 1 MG TABLET PO SCH (09:39)
[2017-03-25] MEDS: FUROSEMIDE 20 MG TABLET PO SCH ×2 (09:39→14:59)
[2017-03-25] MEDS: MELOXICAM 7.5 MG TABLET PO SCH (09:39)
[2017-03-25] MEDS: PYRIDOXINE 100mg TABLET PO SCH (09:39)
--- NOTE | 2017-03-25 11:36 | Neuropsych Progress Note ---
[facility] Subjective Date: 03/25/17 - Sujective/Severity of Illness Medications: Al Hydroxide/Mg Hydroxide (Maalox Plus) 20 - 30 ml PO Q3H PRN PRN Reason: Indigestion Last Admin: 03/23/17 10:19 Dose: 30 ml Duloxetine HCl (Cymbalta) 30 mg PO BID [facility] Last Admin: 03/25/17 09:39 Dose: 30 mg Folic Acid (Folate) 1 mg PO DAILY [facility] Last Admin: 03/25/17 09:39 Dose: 1 mg Furosemide (Lasix) 20 mg PO 14 [facility] Last Admin: 03/25/17 09:39 Dose: 20 mg Haloperidol (Haldol) 0.5 mg PO Q6H PRN PRN Reason: Extreme agitation Haloperidol Lactate (Haldol) 0.5 mg IM Q6H PRN PRN Reason: Extreme agitation Levothyroxine Sodium (Synthroid) 175 mcg PO ACB [facility] Last Admin: 03/25/17 06:35 Dose: 175 mcg Loperamide HCl (Imodium) 2 mg PO PRN PRN PRN Reason: Protocol Last Admin: 03/24/17 18:51 Dose: 2 mg Lorazepam (Ativan Inj) 0.5 mg IM Q6H PRN PRN Reason: Extreme agitation Lorazepam (Ativan) 0.5 mg PO Q6H PRN PRN Reason: Extreme agitation Last Admin: 03/24/17 20:53 Dose: 0.5 mg Lorazepam (Ativan Inj) 2 mg IM ONCE PRN PRN Reason: Seizures Meloxicam (Mobic) 7.5 mg PO DAILY [facility] Last Admin: 03/25/17 09:39 Dose: 7.5 mg Potassium Chloride (Micro-K) 20 meq PO TIDWM [facility] Last Admin: 03/25/17 09:39 Dose: 20 meq Pyridoxine HCl (Vitamin B-6) 25 mg PO DAILY [facility] Last Admin: 03/25/17 09:39 Dose: 25 mg Thiamine HCl (Vitamin B-1) 100 mg PO DAILY [facility] Last Admin: 03/25/17 09:40 Dose: 100 mg Subjective: Pt seen and chart examined. Nursing reports pt is doing well. No behaviors noted. On face to face the pt states she continues to improve. Sleeping and eating well. Mood improved. Denies S/I or psychosis. Denies WD symptoms. Tolerating meds Start Time: 11:30 Stop Time: 11:45 Mental Status Exam Vitals: Last Vital Signs Temp 97.3 F 03/25/17 08:00 Pulse 80 03/25/17 08:00 Resp 16 03/25/17 08:00 BP 120/82 03/25/17 08:00 Pulse Ox 96 03/25/17 08:00 Height: 1.5 m Weight: 68.4 kg - Mental Status Exam Muscle Strength/Tone: Normal Dressing: Casual Grooming: Good Attitude: Cooperative Motor Activity: Retardation Eye Contact: Good Speech: Normal Volume: Normal Rhythm: Appropriate Rhythm Orientation: Oriented X4 Mood: Euthymic Rate of Thoughts: Appropriate Rate Thought Organization: Organized Associations: Intact Abstract Reasoning: Poor abstract reasoning Thought Content: Normal Perception/Psychotic: Perception Normal Current Hallucinations: Visual Language: Naming Intact Fund of Knowledge: Appropriate Memory: Poor-recent Suicidal Ideation: None Homicidal Ideation: Denies Insight: Limited Judgement: Fair Impulse Control: Good - Laboratory Result Diagrams: 03/20/17 17:13 03/23/17 04:17 Assessment and Plan (1) Psychosis Current visit: Yes Status: Acute (2) Alcohol withdrawal Current visit: Yes Status: Acute (3) Alcohol use disorder Current visit: Yes Status: Acute (4) Depressive disorder Current visit: Yes Status: Acute (5) Major neurocognitive disorder Current visit: Yes Status: Acute Hospital Course Summary Disclaimer: The visit summary below is not to be considered part of the above Progress Note. Hospital Course: 03/21/17 Impression Acute Hallucinations Acute transaminitis UTI- POA Daily Alcohol Use Recent falls (with face trauma) Hypothyroidism Depression/Anxiety Chronic back pain Plan Agree with admission to [facility] under the care of Dr Dunn Monitor patient for Alcohol withdrawal symptoms. Place precautionary seizure precautions. Patient may require Serax if she has acute withdrawal. Will leave this up to Dr. Dunn. Will increase patient's home dose of levothyroxine to 175 micrograms daily. Obtain free T4, GGT, vitamin B12, folate for laboratory completeness. Will continue with treatment of urinary tract infection with Keflex 3 times a day. Will wait for urine culture. May be able to discontinue treatment. Depending on culture results. Recheck CMP tomorrow to follow transaminitis Hospitalist service will continue to follow patient and medically manage during her stay on the [facility]. 03/22/17 20:47 Doing better. No WD. Continue current care 03/23/17 11:46 Continues to improve. Will order DIOGENES and RIPPA 03/24/17 10:20 Continue current care 03/25/17 11:35 DIOGENES and RIPPA on Sunday
--- NOTE | 2017-03-25 13:11 | Progress Note ---
<Ester De León - Last Filed: 03/25/17 13:07> - Date 03/25/17 Subjective: Zoila is seen while resting in bed and arouses easily with soft touch. She denies any complaints or concerns including no chest pain, shortness of breath, abdominal pain, dysuria or diarrhea. Her appetite has been good and her bowels are moving. Objective Vital signs: Temperature 97.3 F 03/25/17 08:00 Pulse Rate 80 03/25/17 08:00 Respiratory Rate 16 03/25/17 08:00 Blood Pressure 120/82 03/25/17 08:00 Pulse Oximetry 96 03/25/17 08:00 Height/Weight/BMI: Height 4 ft 11 in Weight 150 lb 12.739 oz Body Mass Index 30.4 - Constitutional Present: no acute distress, well nourished, well developed, cooperative - Routine HEENT Exam Head: Present: normocephalic, atraumatic Eye: Present: PERRL. Absent: conjunctival icterus ENT: Present: mucous membranes moist - Routine Respiratory Exam Present: CTA bilaterally. Absent: rhonchi, stridor, wheezes, crackles - Routine Cardiovascular Exam Present: RRR, S1, S2 - Routine Abdominal Exam Present: soft, normoactive bowel sounds, non distended, non tender - Routine Extremities Exam Present: no edema, pulses intact. Absent: calf tenderness - Routine Back/Spine/Pelvis Exam Back/Spine: Present: full ROM - Routine Musculoskeletal Exam Musculoskeletal: Present: moving extremities well - Routine Skin Exam Present: intact, dry, warm Comments: afebrile - Routine Neurological Exam Present: alert, oriented X3, moving all extremities, normal speech - Routine Lymphatic Exam Lymphatic: Absent: lymphedema - Routine Psychiatric Exam Present: normal affect, cooperative, good insight, good judgment Results - Labs CBC & Chem 7: 03/20/17 17:13 03/23/17 04:17 Assessment and Plan (1) Hallucination Current visit: Yes Status: Acute Assessment and Plan: Impression Acute Hallucinations Acute transaminitis UTI- POA Daily Alcohol Use Recent falls (with face trauma) Hypothyroidism Depression/Anxiety Chronic back pain Plan - 03/25/17 Overall, Zoila is doing well and anticipate discharge in near future. No new labs. Will recheck CBC and BMP given prior hypokalemia to monitor blood counts, electrolytes and renal function. No current dizziness. Continue to monitor closely for orthostatic hypotension. Continue psychiatric care per team and continue to encourage participation in floor activities. Patient appears medically stable. Resuscitation Status: Full Code - Time spent with patient Time with patient PN: 25 minutes Hospital Course Summary Disclaimer: The visit summary below is not to be considered part of the above Progress Note. Hospital Course: 03/21/17 Impression Acute Hallucinations Acute transaminitis UTI- POA Daily Alcohol Use Recent falls (with face trauma) Hypothyroidism Depression/Anxiety Chronic back pain Plan Agree with admission to [facility] under the care of Dr Dunn Monitor patient for Alcohol withdrawal symptoms. Place precautionary seizure precautions. Patient may require Serax if she has acute withdrawal. Will leave this up to Dr. Dunn. Will increase patient's home dose of levothyroxine to 175 micrograms daily. Obtain free T4, GGT, vitamin B12, folate for laboratory completeness. Will continue with treatment of urinary tract infection with Keflex 3 times a day. Will wait for urine culture. May be able to discontinue treatment. Depending on culture results. Recheck CMP tomorrow to follow transaminitis Hospitalist service will continue to follow patient and medically manage during her stay on the [facility]. 03/22/17 20:47 Doing better. No WD. Continue current care 03/23/17 11:46 Continues to improve. Will order DIOGENES and RIPPA 03/24/17 10:20 Continue current care 03/25/17 11:35 DIOGENES and RIPPA on Sunday Plan - 03/25/17 Overall, Zoila is doing well and anticipate discharge in near future. No new labs. Will recheck CBC and BMP given prior hypokalemia to monitor blood counts, electrolytes and renal function. No current dizziness. Continue to monitor closely for orthostatic hypotension. Continue psychiatric care per team and continue to encourage participation in floor activities. Patient appears medically stable. <Haven Arreaga - Last Filed: 03/25/17 19:58> - Date 03/25/17 Results - Labs CBC & Chem 7: 03/20/17 17:13 03/23/17 04:17 Assessment and Plan (1) Hallucination Current visit: Yes Status: Acute (2) Alcohol use disorder Current visit: Yes Status: Acute Assessment and Plan: I have independently evaluated and examined this patient. I reviewed the chart, the patient's history, and the SUPPLIER ENGINEER/PA's documented findings as above. We discussed and formulated the assessment and plan as above with additions as below: Zoila was seen in the day room. She reports that she is tired but otherwise feels well. She denies lightheadedness and is pleased that she's had no falls since hospitalization unlike frequent falls prior to admission. She denied dyspnea but has ongoing pain related to arthritis. NAD, alert, pleasant Respirations nonlabored, breath sounds clear Regular cardiac rhythm Degenerative changes in the small joints of the hands Recent liver enzymes reviewed-trending downward but may be prolonged period before they normalize if they do. Monitor intermittently but do not require frequent testing. Does not appear encephalopathic. Infrequent use of lorazepam; Cymbalta may be contributing to patient's sensation of excess fatigue. Hospital Course Summary Disclaimer: The visit summary below is not to be considered part of the above Progress Note.
[2017-03-25] MEDS: LORazepam 0.5 MG TABLET PO PRN (19:17)
[2017-03-26] MEDS: DULOXETINE 30 MG CAPSULE PO SCH ×3 (00:34→20:04)
[2017-03-26] MEDS: LEVOTHYROXINE 175 MCG TABLET PO SCH (08:16)
[2017-03-26] MEDS: FUROSEMIDE 20 MG TABLET PO SCH ×2 (08:16→13:53)
[2017-03-26] MEDS: FOLIC ACID 1 MG TABLET PO SCH (08:16)
[2017-03-26] MEDS: MELOXICAM 7.5 MG TABLET PO SCH (08:17)
[2017-03-26] MEDS: PYRIDOXINE 100mg TABLET PO SCH (08:17)
[2017-03-26] MEDS: LORazepam 0.5 MG TABLET PO PRN (20:04)
--- NOTE | 2017-03-26 21:23 | Neuropsych Progress Note ---
[facility] Subjective Date: 03/26/17 - Sujective/Severity of Illness Medications: Al Hydroxide/Mg Hydroxide (Maalox Plus) 20 - 30 ml PO Q3H PRN PRN Reason: Indigestion Last Admin: 03/23/17 10:19 Dose: 30 ml Duloxetine HCl (Cymbalta) 30 mg PO BID [facility] Last Admin: 03/26/17 20:04 Dose: Not Given Folic Acid (Folate) 1 mg PO DAILY [facility] Last Admin: 03/26/17 08:16 Dose: 1 mg Furosemide (Lasix) 20 mg PO 09,14 [facility] Last Admin: 03/26/17 13:53 Dose: 20 mg Haloperidol (Haldol) 0.5 mg PO Q6H PRN PRN Reason: Extreme agitation Haloperidol Lactate (Haldol) 0.5 mg IM Q6H PRN PRN Reason: Extreme agitation Levothyroxine Sodium (Synthroid) 175 mcg PO ACB [facility] Last Admin: 03/26/17 08:16 Dose: 175 mcg Loperamide HCl (Imodium) 2 mg PO PRN PRN; Protocol PRN Reason: Diarrhea Last Admin: 03/24/17 18:51 Dose: 2 mg Lorazepam (Ativan Inj) 0.5 mg IM Q6H PRN PRN Reason: Extreme agitation Lorazepam (Ativan) 0.5 mg PO Q6H PRN PRN Reason: Extreme agitation Last Admin: 03/26/17 20:04 Dose: 0.5 mg Lorazepam (Ativan Inj) 2 mg IM ONCE PRN PRN Reason: Seizures Meloxicam (Mobic) 7.5 mg PO WB [facility] Potassium Chloride (Micro-K) 20 meq PO TIDWM [facility] Last Admin: 03/26/17 17:38 Dose: 20 meq Pyridoxine HCl (Vitamin B-6) 25 mg PO DAILY [facility] Last Admin: 03/26/17 08:17 Dose: 25 mg Thiamine HCl (Vitamin B-1) 100 mg PO DAILY [facility] Last Admin: 03/26/17 08:17 Dose: 100 mg Subjective: Pt seen and chart examined. Nursing reports pt is doing well. No behaviors noted. On face to face the pt states she continues to improve. Sleeping and eating well. Mood continues to improve. Denies WD symptoms and denies S/I. Tolerating meds Start Time: 18:30 Stop Time: 18:45 Mental Status Exam Vitals: Last Vital Signs Temp 97.2 F 03/26/17 19:50 Pulse 93 03/26/17 19:50 Resp 20 03/26/17 19:50 BP 114/65 03/26/17 19:50 Pulse Ox 96 03/26/17 19:50 Height: 1.5 m Weight: 68.4 kg - Mental Status Exam Muscle Strength/Tone: Normal Dressing: Casual Grooming: Good Attitude: Cooperative Motor Activity: Retardation Eye Contact: Good Speech: Normal Volume: Normal Rhythm: Appropriate Rhythm Orientation: Oriented X4 Mood: Euthymic Rate of Thoughts: Appropriate Rate Thought Organization: Organized Associations: Intact Abstract Reasoning: Poor abstract reasoning Thought Content: Normal Perception/Psychotic: Perception Normal Current Hallucinations: Visual Language: Naming Intact Fund of Knowledge: Appropriate Memory: Poor-recent Suicidal Ideation: None Homicidal Ideation: Denies Insight: Limited Judgement: Fair Impulse Control: Good - Laboratory Result Diagrams: 03/26/17 04:15 03/26/17 04:15 Laboratory Results - last 24 hr 03/26/17 03/26/17 04:15 04:15 WBC 3.6 L RBC 3.24 L Hgb 10.9 L Hct 33.0 L MCV 101.9 H MCH 33.6 MCHC 33.0 RDW Std Deviation 61.8 H Plt Count 152 MPV 9.8 Immature Gran % (Auto) 0.6 H Neut % (Auto) 45.9 Lymph % (Auto) 39.6 Knott % (Auto) 9.7 H Eos % (Auto) 3.6 Baso % (Auto) 0.6 Neut # (Auto) 1.7 L Lymph # (Auto) 1.4 Knott # (Auto) 0.4 Eos # (Auto) 0.1 Baso # (Auto) 0.0 Abs Immat Gran (auto) 0.02 Turbidity < 20 Sodium 134 Potassium 3.9 Chloride 102 Carbon Dioxide 32 H Anion Gap 0 L BUN 13.0 Creatinine 0.6 L GFR Calculation 98 BUN/Creatinine Ratio 22 Glucose 75 Calculated Osmolality 257 L Calcium 8.0 L Total Bilirubin 0.30 Icterus Index < 2 AST 99 H ALT 82 H Alkaline Phosphatase 130 H Total Protein 5.0 L Albumin 2.4 L Globulin 2.6 Albumin/Globulin Ratio 0.9 L Specimen Hemolysis 28 H Assessment and Plan (1) Psychosis Current visit: Yes Status: Acute (2) Alcohol withdrawal Current visit: Yes Status: Acute (3) Alcohol use disorder Current visit: Yes Status: Acute (4) Depressive disorder Current visit: Yes Status: Acute (5) Major neurocognitive disorder Current visit: Yes Status: Acute Hospital Course Summary Disclaimer: The visit summary below is not to be considered part of the above Progress Note. Hospital Course: 03/21/17 Impression Acute Hallucinations Acute transaminitis UTI- POA Daily Alcohol Use Recent falls (with face trauma) Hypothyroidism Depression/Anxiety Chronic back pain Plan Agree with admission to [facility] under the care of Dr Dunn Monitor patient for Alcohol withdrawal symptoms. Place precautionary seizure precautions. Patient may require Serax if she has acute withdrawal. Will leave this up to Dr. Dunn. Will increase patient's home dose of levothyroxine to 175 micrograms daily. Obtain free T4, GGT, vitamin B12, folate for laboratory completeness. Will continue with treatment of urinary tract infection with Keflex 3 times a day. Will wait for urine culture. May be able to discontinue treatment. Depending on culture results. Recheck CMP tomorrow to follow transaminitis Hospitalist service will continue to follow patient and medically manage during her stay on the [facility]. 03/22/17 20:47 Doing better. No WD. Continue current care 03/23/17 11:46 Continues to improve. Will order DIOGENES and RIPPA 03/24/17 10:20 Continue current care 03/25/17 11:35 DIOGENES and RIPPA on Sunday Plan - 03/25/17 Overall, Zoila is doing well and anticipate discharge in near future. No new labs. Will recheck CBC and BMP given prior hypokalemia to monitor blood counts, electrolytes and renal function. No current dizziness. Continue to monitor closely for orthostatic hypotension. Continue psychiatric care per team and continue to encourage participation in floor activities. Patient appears medically stable. 03/26/17 21:21 Pt is doing well. DIOGENES and RIPPA show pt could live independently with some assistance. DPOA was notified and discharge planning underway
[2017-03-27] MEDS: LEVOTHYROXINE 175 MCG TABLET PO SCH (06:37)
[2017-03-27] MEDS: FOLIC ACID 1 MG TABLET PO SCH (08:16)
[2017-03-27] MEDS: MELOXICAM 7.5 MG TABLET PO SCH (08:16)
[2017-03-27] MEDS: DULOXETINE 30 MG CAPSULE PO SCH ×2 (08:17→20:40)
[2017-03-27] MEDS: FUROSEMIDE 20 MG TABLET PO SCH (08:17)
[2017-03-27] MEDS: PYRIDOXINE 100mg TABLET PO SCH (08:17)
[2017-03-27] MEDS: LOPERAMIDE 2 MG CAPSULE PO PRN (10:04)
--- NOTE | 2017-03-27 13:35 | Progress Note ---
- Date 03/27/17 Subjective: Zoila is seen today while eating breakfast following nursing staff reporting orthostasis this morning laying 142/83, Sitting 114/78, standing 89/62. She is asymptomatic with orthostatic vitals. She denies chest pain, shortness of breath , lightheaded or dizziness. Appetite has been good. She has had 2 loose stools this morning, however, that is not uncommon given her history of irritable bowel syndrome. Objective Vital signs: Temperature 97.9 F 03/27/17 08:00 Pulse Rate 109 H 03/27/17 10:21 Respiratory Rate 18 03/27/17 08:00 Blood Pressure 89/62 03/27/17 10:21 Pulse Oximetry 97 03/27/17 10:21 Height/Weight/BMI: Height 1.5 m Weight 68.4 kg Body Mass Index 30.4 - Constitutional Present: no acute distress, well nourished, well developed - Routine HEENT Exam Eye: Present: EOMI ENT: Present: mucous membranes moist, dentition normal - Routine Respiratory Exam Present: CTA bilaterally. Absent: wheezes - Routine Cardiovascular Exam Present: RRR, S1, S2. Absent: murmur - Routine Abdominal Exam Present: soft, normoactive bowel sounds, non distended. Absent: tenderness - Routine Extremities Exam Present: full ROM - Routine Skin Exam Present: intact, dry, warm - Routine Neurological Exam Present: alert, oriented X3, CN II-XII intact - Routine Lymphatic Exam Lymphatic: Absent: adenopathy - Routine Psychiatric Exam Present: normal affect, cooperative Results - Labs CBC & Chem 7: 03/26/17 04:15 03/26/17 04:15 Assessment and Plan (1) Hallucination Current visit: Yes Status: Acute (2) Alcohol use disorder Current visit: Yes Status: Acute Assessment and Plan: Impression Orthostatis- acute 03/27 Acute Hallucinations- Resolved Acute transaminitis UTI- POA Daily Alcohol Use Recent falls (with face trauma) Hypothyroidism Depression/Anxiety Chronic back pain Plan Given orthostasis will place Lasix and potassium on hold. She is not on any other anit-hypertensive medications. Hypotension may be related to lack of Alcohol use since hospitalized. Will continue to monitor Encourage PO intake Monitor loose bowel movements as she may loose more fluid. Transaminitis stable. Encourage continued participation in unit activities. Hospital Course Summary Disclaimer: The visit summary below is not to be considered part of the above Progress Note. Hospital Course: 03/21/17 Impression Acute Hallucinations Acute transaminitis UTI- POA Daily Alcohol Use Recent falls (with face trauma) Hypothyroidism Depression/Anxiety Chronic back pain Plan Agree with admission to [facility] under the care of Dr Dunn Monitor patient for Alcohol withdrawal symptoms. Place precautionary seizure precautions. Patient may require Serax if she has acute withdrawal. Will leave this up to Dr. Dunn. Will increase patient's home dose of levothyroxine to 175 micrograms daily. Obtain free T4, GGT, vitamin B12, folate for laboratory completeness. Will continue with treatment of urinary tract infection with Keflex 3 times a day. Will wait for urine culture. May be able to discontinue treatment. Depending on culture results. Recheck CMP tomorrow to follow transaminitis Hospitalist service will continue to follow patient and medically manage during her stay on the [facility]. 03/22/17 20:47 Doing better. No WD. Continue current care 03/23/17 11:46 Continues to improve. Will order DIOGENES and RIPPA 03/24/17 10:20 Continue current care 03/25/17 11:35 DIOGENES and RIPPA on Sunday Plan - 03/25/17 Overall, Zoila is doing well and anticipate discharge in near future. No new labs. Will recheck CBC and BMP given prior hypokalemia to monitor blood counts, electrolytes and renal function. No current dizziness. Continue to monitor closely for orthostatic hypotension. Continue psychiatric care per team and continue to encourage participation in floor activities. Patient appears medically stable. 03/26/17 21:21 Pt is doing well. DIOGENES and RIPPA show pt could live independently with some assistance. DPOA was notified and discharge planning underway 03/27/17 -Plan Given orthostasis will place Lasix and potassium on hold. She is not on any other anit-hypertensive medications. Hypotension may be related to lack of Alcohol use since hospitalized. Will continue to monitor Encourage PO intake Monitor loose bowel movements as she may loose more fluid. Transaminitis stable. Encourage continued participation in unit activities
--- NOTE | 2017-03-27 18:17 | Neuropsych Progress Note ---
[facility] Subjective Date: 03/27/17 - Sujective/Severity of Illness Medications: Al Hydroxide/Mg Hydroxide (Maalox Plus) 20 - 30 ml PO Q3H PRN PRN Reason: Indigestion Last Admin: 03/23/17 10:19 Dose: 30 ml Duloxetine HCl (Cymbalta) 30 mg PO BID [facility] Last Admin: 03/27/17 08:17 Dose: 30 mg Folic Acid (Folate) 1 mg PO DAILY [facility] Last Admin: 03/27/17 08:16 Dose: 1 mg Furosemide (Lasix) 20 mg PO 09,14 [facility] Last Admin: 03/27/17 08:17 Dose: 20 mg Haloperidol (Haldol) 0.5 mg PO Q6H PRN PRN Reason: Extreme agitation Haloperidol Lactate (Haldol) 0.5 mg IM Q6H PRN PRN Reason: Extreme agitation Levothyroxine Sodium (Synthroid) 175 mcg PO ACB [facility] Last Admin: 03/27/17 06:37 Dose: 175 mcg Loperamide HCl (Imodium) 2 mg PO PRN PRN; Protocol PRN Reason: Diarrhea Last Admin: 03/27/17 10:04 Dose: 2 mg Lorazepam (Ativan Inj) 0.5 mg IM Q6H PRN PRN Reason: Extreme agitation Lorazepam (Ativan) 0.5 mg PO Q6H PRN PRN Reason: Extreme agitation Last Admin: 03/26/17 20:04 Dose: 0.5 mg Lorazepam (Ativan Inj) 2 mg IM ONCE PRN PRN Reason: Seizures Meloxicam (Mobic) 7.5 mg PO WB [facility] Last Admin: 03/27/17 08:16 Dose: 7.5 mg Potassium Chloride (Micro-K) 20 meq PO TIDWM [facility] Last Admin: 03/27/17 08:16 Dose: 20 meq Pyridoxine HCl (Vitamin B-6) 25 mg PO DAILY [facility] Last Admin: 03/27/17 08:17 Dose: 25 mg Thiamine HCl (Vitamin B-1) 100 mg PO DAILY [facility] Last Admin: 03/27/17 08:17 Dose: 100 mg Subjective: Patient seen and chart reviewed. Case discussed with treatment team. On interview, patient is pleasant and cooperative. She reports that her mood is good. She has been refusing evening dose of Cymbalta. Offered to increase AM dose instead but she said she'd take it in the evening as scheduled after all. She feels ready to return home. Have recommended assisted living and 24/ assistance available. Family does not feel it is achievable right now - SW discussing further with daughter/DPOA but they will likely choose to take patient back to her own apartment. Discussed with patient and recommended to family that they take her keys and she should not be driving until she has formal driving evaluation. She denies w/d symptoms and is adamant about wanting to stop drinking. She is willing to go to AA and says she has a friend who can give her a ride, but was a bit gamey about being able to reach this friend. Will also discuss with daughter. Patient reports feeling better physically from admission and that dizziness is now gone. Patient denies any SI, HI or AVH. Patient denies any adverse side effects related to psychotropic medications. Nursing staff report patient has not had any significant behavioral difficulties on the unit and has been adherent with medications. Patient slept 8.75 hours overnight. Patient is eating well. Psychotropic PRNs required in the past 24 hours: Ativan 0.5mg PO x1 at 2004 due to patient's request. Patient had significant orthostasis today so medical team is holding Lasix, potassium. Start Time: 14:40 Stop Time: 15:00 Mental Status Exam Vitals: Last Vital Signs Temp 98.4 F 03/27/17 15:28 Pulse 85 03/27/17 15:28 Resp 18 03/27/17 15:28 BP 118/69 03/27/17 15:28 Pulse Ox 98 03/27/17 15:28 Height: 1.5 m Weight: 68.4 kg - Mental Status Exam Muscle Strength/Tone: Normal Dressing: Casual Grooming: Good Attitude: Cooperative Motor Activity: Retardation Eye Contact: Good Speech: Normal Volume: Normal Rhythm: Appropriate Rhythm Orientation: Disoriented to time, Oriented to place Mood: Euthymic Rate of Thoughts: Appropriate Rate Thought Organization: Organized Associations: Intact Abstract Reasoning: Poor abstract reasoning Thought Content: Normal Perception/Psychotic: Perception Normal Language: Naming Intact Fund of Knowledge: Monserrat aware current events Memory: Poor-recent Suicidal Ideation: Denies Homicidal Ideation: Denies Insight: Limited Judgement: Fair Impulse Control: Good - Laboratory Result Diagrams: 03/26/17 04:15 03/26/17 04:15 Assessment and Plan (1) Psychosis Qualifiers: Psychosis type: unspecified psychosis type Qualified Code(s): F29 - Unspecified psychosis not due to a substance or known physiological condition Current visit: Yes Status: Acute (2) Alcohol withdrawal Current visit: Yes Status: Acute (3) Alcohol use disorder Current visit: Yes Status: Acute (4) Depressive disorder Current visit: Yes Status: Acute (5) Major neurocognitive disorder Current visit: Yes Status: Acute Hospital Course Summary Disclaimer: The visit summary below is not to be considered part of the above Progress Note. Hospital Course: 03/21/17 Impression Acute Hallucinations Acute transaminitis UTI- POA Daily Alcohol Use Recent falls (with face trauma) Hypothyroidism Depression/Anxiety Chronic back pain Plan Agree with admission to [facility] under the care of Dr Dunn Monitor patient for Alcohol withdrawal symptoms. Place precautionary seizure precautions. Patient may require Serax if she has acute withdrawal. Will leave this up to Dr. Dunn. Will increase patient's home dose of levothyroxine to 175 micrograms daily. Obtain free T4, GGT, vitamin B12, folate for laboratory completeness. Will continue with treatment of urinary tract infection with Keflex 3 times a day. Will wait for urine culture. May be able to discontinue treatment. Depending on culture results. Recheck CMP tomorrow to follow transaminitis Hospitalist service will continue to follow patient and medically manage during her stay on the [facility] unit. 03/22/17 20:47 Doing better. No WD. Continue current care 03/23/17 11:46 Continues to improve. Will order DIOGENES and RIPPA 03/24/17 10:20 Continue current care 03/25/17 11:35 DIOGENES and RIPPA on Sunday Plan - 03/25/17 Overall, Zoila is doing well and anticipate discharge in near future. No new labs. Will recheck CBC and BMP given prior hypokalemia to monitor blood counts, electrolytes and renal function. No current dizziness. Continue to monitor closely for orthostatic hypotension. Continue psychiatric care per team and continue to encourage participation in floor activities. Patient appears medically stable. 03/26/17 21:21 Pt is doing well. DIOGENES and RIPPA show pt could live independently with some assistance. DPOA was notified and discharge planning underway 03/27/17 -Plan Given orthostasis will place Lasix and potassium on hold. She is not on any other anit-hypertensive medications. Hypotension may be related to lack of Alcohol use since hospitalized. Will continue to monitor Encourage PO intake Monitor loose bowel movements as she may loose more fluid. Transaminitis stable. Encourage continued participation in unit activities 03/27/17 Psych: SW networking with daughter/DPOA in regards to discharge planning. Recommended [place] vs. 20/11 assistance. Recommended no driving until formal evaluation. Patient in agreement with attending AA and would like to attend daily.
[2017-03-27] MEDS: LORazepam 0.5 MG TABLET PO PRN (20:40)
[2017-03-28] MEDS: LEVOTHYROXINE 175 MCG TABLET PO SCH (05:33)
[2017-03-28] MEDS: DULOXETINE 30 MG CAPSULE PO SCH ×2 (08:02→20:12)
[2017-03-28] MEDS: PYRIDOXINE 100mg TABLET PO SCH (08:02)
[2017-03-28] MEDS: FOLIC ACID 1 MG TABLET PO SCH (08:03)
[2017-03-28] MEDS: MELOXICAM 7.5 MG TABLET PO SCH (08:03)
[2017-03-28] MEDS: LOPERAMIDE 2 MG CAPSULE PO PRN ×3 (09:18→21:01)
[2017-03-28] MEDS ORDERED: ONDANSETRON ODT 4 MG TABLET PO PRN (09:33)
[2017-03-28] MEDS: LORazepam 0.5 MG TABLET PO PRN (20:12)
--- NOTE | 2017-03-28 20:35 | Neuropsych Progress Note ---
[facility] Subjective Date: 03/28/17 - Sujective/Severity of Illness Medications: Al Hydroxide/Mg Hydroxide (Maalox Plus) 20 - 30 ml PO Q3H PRN PRN Reason: Indigestion Last Admin: 03/23/17 10:19 Dose: 30 ml Duloxetine HCl (Cymbalta) 30 mg PO BID [facility] Last Admin: 03/28/17 20:12 Dose: 30 mg Folic Acid (Folate) 1 mg PO DAILY [facility] Last Admin: 03/28/17 08:03 Dose: 1 mg Furosemide (Lasix) 20 mg PO 14 [facility] Last Admin: 03/27/17 08:17 Dose: 20 mg Haloperidol (Haldol) 0.5 mg PO Q6H PRN PRN Reason: Extreme agitation Haloperidol Lactate (Haldol) 0.5 mg IM Q6H PRN PRN Reason: Extreme agitation Levothyroxine Sodium (Synthroid) 175 mcg PO ACB [facility] Last Admin: 03/28/17 05:33 Dose: 175 mcg Loperamide HCl (Imodium) 2 mg PO PRN PRN; Protocol PRN Reason: Diarrhea Last Admin: 03/28/17 09:37 Dose: 2 mg Lorazepam (Ativan Inj) 0.5 mg IM Q6H PRN PRN Reason: Extreme agitation Lorazepam (Ativan) 0.5 mg PO Q6H PRN PRN Reason: Extreme agitation Last Admin: 03/28/17 20:12 Dose: 0.5 mg Lorazepam (Ativan Inj) 2 mg IM ONCE PRN PRN Reason: Seizures Meloxicam (Mobic) 7.5 mg PO WB [facility] Last Admin: 03/28/17 08:03 Dose: 7.5 mg Ondansetron HCl (Zofran Po) 4 mg PO Q6H PRN PRN Reason: Nausea &/or vomiting Last Admin: 03/28/17 09:37 Dose: 4 mg Potassium Chloride (Micro-K) 20 meq PO TIDWM [facility] Last Admin: 03/27/17 08:16 Dose: 20 meq Pyridoxine HCl (Vitamin B-6) 25 mg PO DAILY [facility] Last Admin: 03/28/17 08:02 Dose: 25 mg Thiamine HCl (Vitamin B-1) 100 mg PO DAILY [facility] Last Admin: 03/28/17 08:02 Dose: 100 mg Subjective: Patient seen and chart reviewed. Case discussed with treatment team. On interview, patient is pleasant and cooperative. She reports that her mood is good. She feels ready to return home and has a plan to remain sober, including AA. Again reviewed recommendation that she not drive; she expressed understanding. This has also been discussed with son and daughter. Patient reports feeling better physically from admission and that dizziness is now gone. Patient denies any SI, HI or AVH. Patient denies any adverse side effects related to psychotropic medications. Nursing staff report patient has not had any significant behavioral difficulties on the unit and has been adherent with medications. Patient observed walking steadily without assistance. Patient slept 6.5 hours overnight. Patient is eating well. Psychotropic PRNs required in the past 24 hours: Ativan 0.5mg PO x1 due to patient's request. Plan to discharge to home tomorrow ([place] with 20/11 assistance recommended to family/DPOA) and attend AA, will have med management and behavioral health services. Family friend Kylah will give rides, ensure patient has food, etc. and talked with SW. BAIN 21 yesterday compared to 16 on admission. Start Time: 13:40 Stop Time: 14:00 Mental Status Exam Vitals: Last Vital Signs Temp 97.3 F 03/28/17 16:00 Pulse 88 03/28/17 16:00 Resp 16 03/28/17 16:00 BP 131/70 03/28/17 16:00 Pulse Ox 94 03/28/17 16:00 Height: 1.5 m Weight: 69.4 kg - Mental Status Exam Muscle Strength/Tone: Normal Dressing: Casual Grooming: Good Attitude: Cooperative Motor Activity: Normal Eye Contact: Good Speech: Normal Volume: Normal Rhythm: Appropriate Rhythm Orientation: Disoriented to time, Oriented to place Mood: Euthymic Affect: Bright Rate of Thoughts: Appropriate Rate Thought Organization: Organized Associations: Intact Abstract Reasoning: Intact, able to abstract Thought Content: Normal Perception/Psychotic: Perception Normal Current Hallucinations: Visual Language: Naming Intact Fund of Knowledge: Monserrat aware current events Memory: Other (Some recent memory impairment - difficult to assess what level was due to EtOH prior to admission) Suicidal Ideation: Denies Homicidal Ideation: Denies Insight: Limited Judgement: Fair Impulse Control: Good - Laboratory Result Diagrams: 03/26/17 04:15 03/26/17 04:15 Assessment and Plan (1) Psychosis Qualifiers: Psychosis type: unspecified psychosis type Qualified Code(s): F29 - Unspecified psychosis not due to a substance or known physiological condition Current visit: Yes Status: Acute resolved (2) Alcohol withdrawal Current visit: Yes Status: Acute (3) Alcohol use disorder Current visit: Yes Status: Acute severe (4) Depressive disorder Current visit: Yes Status: Acute (5) Major neurocognitive disorder Current visit: Yes Status: Acute likely alcohol-induced, mild Plan to discharge to home with family/DPOA's consent tomorrow 03/29. Have recommended / assistance and that patient undergo a formal driving evaluation ; recommended family take keys until this has been completed. Patient will attend AA, friend agreed to give ride. Will request for med administration, behavioral health. Hospital Course Summary Disclaimer: The visit summary below is not to be considered part of the above Progress Note. Hospital Course: 03/21/17 Impression Acute Hallucinations Acute transaminitis UTI- POA Daily Alcohol Use Recent falls (with face trauma) Hypothyroidism Depression/Anxiety Chronic back pain Plan Agree with admission to [facility] under the care of Dr Dunn Monitor patient for Alcohol withdrawal symptoms. Place precautionary seizure precautions. Patient may require Serax if she has acute withdrawal. Will leave this up to Dr. Dunn. Will increase patient's home dose of levothyroxine to 175 micrograms daily. Obtain free T4, GGT, vitamin B12, folate for laboratory completeness. Will continue with treatment of urinary tract infection with Keflex 3 times a day. Will wait for urine culture. May be able to discontinue treatment. Depending on culture results. Recheck CMP tomorrow to follow transaminitis Hospitalist service will continue to follow patient and medically manage during her stay on the [facility]. 03/22/17 20:47 Doing better. No WD. Continue current care 03/23/17 11:46 Continues to improve. Will order DIOGENES and RIPPA 03/24/17 10:20 Continue current care 03/25/17 11:35 DIOGENES and RIPPA on Sunday Plan - 03/25/17 Overall, Zoila is doing well and anticipate discharge in near future. No new labs. Will recheck CBC and BMP given prior hypokalemia to monitor blood counts, electrolytes and renal function. No current dizziness. Continue to monitor closely for orthostatic hypotension. Continue psychiatric care per team and continue to encourage participation in floor activities. Patient appears medically stable. 03/26/17 21:21 Pt is doing well. DIOGENES and RIPPA show pt could live independently with some assistance. DPOA was notified and discharge planning underway 03/27/17 -Plan Given orthostasis will place Lasix and potassium on hold. She is not on any other anit-hypertensive medications. Hypotension may be related to lack of Alcohol use since hospitalized. Will continue to monitor Encourage PO intake Monitor loose bowel movements as she may loose more fluid. Transaminitis stable. Encourage continued participation in unit activities 03/27/17 Psych: SW networking with daughter/DPOA in regards to discharge planning. Recommended [place] vs[place] 24/7 assistance. Recommended no driving until formal evaluation. Patient in agreement with attending AA and would like to attend daily.
[2017-03-29] MEDS: LEVOTHYROXINE 175 MCG TABLET PO SCH (05:37)
[2017-03-29] MEDS: MELOXICAM 7.5 MG TABLET PO SCH (07:47)
[2017-03-29] MEDS: FOLIC ACID 1 MG TABLET PO SCH ×2 (07:48→10:45)
[2017-03-29] MEDS: PYRIDOXINE 100mg TABLET PO SCH ×2 (07:48→10:46)
[2017-03-29] MEDS: DULOXETINE 30 MG CAPSULE PO SCH ×2 (07:48→10:45)
[2017-03-29 08:27] VITALS: BP 125/82; PULSE 68; RESP 16; TEMP 97.5; O2SAT 94
== END 2017-03-29 14:55 | disposition home or self-care (01) | DRG 885 ==
LOC: ED 16:32 → GEN 20:17
PROVIDERS: ADMIT Psychiatry & Neurology Psychiatry; ATTEND Psychiatry & Neurology Psychiatry